=== PATIENT | female | born 1960 | race Caucasian/White ===

== ENCOUNTER → 2018-12-02 | Outpatient (CLI) | payer BC ==
[~2018-12-02] MED LIST: LIDOCAINE-MPF 1%, 5ML ONE
== END | disposition home or self-care (01) ==
LOC: RAD 12:01
PROVIDERS: ATTEND Nurse Practitioner Family
DX: Q89.2 Congenital malformations of other endocrine glands (principal)
CPT/HCPCS: 10005; 10030; 76942; 87070; 87075; 87205; 88173

== ENCOUNTER 2020-03-25 12:34 | Outpatient (CLI) | payer BC ==
[2020-03-25] MEDS ORDERED: LIDOCAINE 1%, 10ML ONE (12:41)
== END 2020-03-25 23:59 | disposition home or self-care (01) ==
LOC: RAD 12:34
PROVIDERS: ATTEND Nurse Practitioner Family
DX: R59.9 Enlarged lymph nodes, unspecified (principal)
CPT/HCPCS: 38505; 76942